=== PATIENT | female | born 1945 | race Caucasian/White ===

== ENCOUNTER 2016-07-23 13:46 | Outpatient (CLI) | payer MEDICARE, OTHER | END 2016-07-23 13:47 | disposition home or self-care (01) | DX: M25.561 Pain in right knee (principal) ==

== ENCOUNTER 2016-11-08 07:58 | Outpatient (CLI) | payer MEDICARE, OTHER | END 2016-11-08 07:59 | disposition home or self-care (01) | DX: F41.9 Anxiety disorder, unspecified (principal); M25.50 Pain in unspecified joint; G62.9 Polyneuropathy, unspecified; K58.9 Irritable bowel syndrome, unspecified; G43.909 Migraine, unspecified, not intractable, without status migrainosus; N95.2 Postmenopausal atrophic vaginitis; J44.9 Chronic obstructive pulmonary disease, unspecified; N60.19 Diffuse cystic mastopathy of unspecified breast; K20.9 Esophagitis, unspecified; J30.2 Other seasonal allergic rhinitis; Z79.899 Other long term (current) drug therapy ==